=== PATIENT | female | born 1995 | race Caucasian/White ===

== ENCOUNTER 2017-10-09 17:21 | Emergency (ER) | payer MEDICAID ==
--- NOTE | 2017-10-09 17:28 | EDPHY ---
H & P Source: Patient, RN/MD Exam Limitations: No limitations Time Seen by Provider: 10/09/17 17:27 HPI/ROS: HPI: This is a 22-year-old female who presents with Chief Complaint:M! Hold Location:psych Quality:M1 hold Duration: Today Signs and Symptoms: + auditory and visual command hallucinations, + passive suicidal ideation but no plan, no homicidal ideation, + paranoid , + insomnia, + decreased appetite Timing: Acute on chronic Severity: Severe Context: Patient has a history of schizophrenia admits to being off her medications x1 month presents from [facility] on M1 hold from therapist who reports that patient is rambling, disorganized, experiencing increased auditory and visual hallucinations along with passive suicidal thoughts with no plan. Patient is extremely paranoid. Unable to care for self. Lives alone. If eyes is female wants to be called "Nim." Denies recreational drug use or alcohol use. Has a history of prior inpatient psychiatric admissions. Denies prior suicide attempts. Modifying Factors: None Comment: ROS: see HPI Constitutional: No fever, no chills, no weight loss Eyes: No blurred vision Respiratory: No shortness of breath, no cough Cardiovascular: No chest pain Gastrointestinal: No nausea, no vomiting, no diarrhea Genitourinary: No dysuria Extremities: No myalgias Neurologic: No weakness, no numbness Skin: No rashes Hematologic: No bruising, no bleeding MEDICAL/SURGICAL/SOCIAL HISTORY: Medical history: Schizophrenia Surgical history: Denies Social history: Lives alone. CONSTITUTIONAL: Untidy, poor personal hygiene, eccentric, rambling speech pattern young adult female, awake and alert, no obvious distress HEENT: Atraumatic and normocephalic, PERRL, EOMI. Tympanic membranes clear. Oropharynx clear, no exudate and moist pink mucosa. Airway patent. No lymphadenopathy. No meningismus. Cardiovascular: Normal S1/S2, regular rate, regular rhythm, without murmur rub or gallop. PULMONARY/CHEST: Symmetrical and nontender. Clear to auscultation bilaterally. Good air movement. No accessory muscle usage. ABDOMEN: Soft, nondistended, nontender, no rebound, no guarding, no peritoneal signs, no masses or organomegaly. No CVAT. EXTREMITIES: 2/2 pulses, strength 5/5, no deformities, no clubbing, no cyanosis or edema. NEUROLOGICAL: no focal neuro deficits. GCS 15. SKIN: Warm and dry, no erythema. no rash. Good capillary refill. PSYCH: Poor eye contact, + flight of ideas, + tangential disorganized thought process, poor insight and judgment, + auditory and visual command hallucinations , + passive suicidal ideation but no plan, no homicidal ideation, + paranoid (Chrissie Morales) Constitutional: Initial Vital Signs Temperature (C) 36.7 C 10/09/17 17:33 Heart Rate 80 10/09/17 17:33 Respiratory Rate 18 10/09/17 17:33 Blood Pressure 117/76 10/09/17 17:33 O2 Sat (%) 97 10/09/17 17:33 O2 Delivery Mode Room Air Allergies/Adverse Reactions: No Known Allergies Allergy (Unverified 10/09/17 17:35) Home Medications: Medication Instructions Recorded Inbraza 10/09/17 Invega Sustjose (*) 10/09/17 Medical Decision Making ED Course/Re-evaluation: The patient was evaluated and managed by the physician's purchasing assistant. My cosignature indicates that I reviewed the chart and I agree with the findings and plan of care as documented. I am the secondary supervising physician. ( Stephie Antoine) 1735: Agree with M1 hold as patient is clearly noncompliant with medications; severe depressive type schizophrenia active hallucinations and gravely disabled and unable to care for self. Labs and UDS ordered. Patient is currently calm and cooperative in no interventions are required upon admission interview. 1816: UDS positive for marijuana. 1850: Labs reviewed and grossly unremarkable; medically clear for mental health evaluation. Mental health evaluation complete. Recommends inpatient psychiatric treatment. Looking for placement. 0035: End of shift. Signed over to Dr. Martel. Patient remains calm and cooperative. Pending placement. This patient was seen under the supervision of my secondary supervising physician. I evaluated care for this patient independently. Discussed this patient with Dr. Antoine who did not see the patient. Patient's presentation, labs/imaging, treatment and plan of care were discussed with secondary supervising physician. (Chrissie Morales) 0623: No acute events overnight. Patient signed over to Dr. Smith at 7:00 a.m. shift change. Patient pending inpatient psychiatric hospitalization placement. (Yaw Martel) 7:00 a.m.-I assumed care of this patient at shift change. Awaiting inpatient mental health disposition. 10:30 a.m.-this patient has been accepted to [facility]. EMTALA completed. (Eloise Smiht) Differential Diagnosis: Differential diagnosis includes but is not limited to schizophrenia, severe major depression, psychosis, suicidal ideation. (Chrissie Morales) - Data Points Laboratory Results: Laboratory Results 10/09/17 17:42 10/09/17 17:42 Medications Given: Discontinued Medications Olanzapine (Zyprexa Zydis) 5 mg PO EDNOW ONE Stop: 10/09/17 23:03 Last Admin: 10/09/17 23:09 Dose: 5 mg Departure - Departure Disposition: Other Psych, Not [facility] Clinical Impression: Suicidal ideation Condition: Fair Referrals: Patient,NotPresent [Unknown] - As per Instructions
[2017-10-09 17:59] LABS: PLATELET COUNT 292 10^3/uL (150-400)
[2017-10-09] MEDS ORDERED: OLANZapine DISINTEGR 5 MG TAB PO ONE (23:02)
[2017-10-10] MEDS: NICOTINE POLACRILEX 2 MG GUM B PRN ×2 (10:36→11:46)
[2017-10-10 11:11] VITALS: PULSE 81; RESP 19
[2017-10-10] MEDS ORDERED: OLANZapine DISINTEGR 5 MG TAB PO ONE (11:43)
[2017-10-10 13:01] VITALS: BP 110/68; TEMP 97.9; O2SAT 96
== END 2017-10-10 12:15 ==
LOC: MERGE 17:21
DX: R45.851 Suicidal ideations (principal)
CPT/HCPCS: 80305; G0480